=== PATIENT | female | born 1960 | race Caucasian/White ===

== ENCOUNTER 2017-07-09 12:04 | Emergency (ER) | payer MEDICAID ==
[~2017-07-09] VITALS: Ht 152.4 cm; Wt 57.5 kg
[~2017-07-09 12:04] MED LIST: DIPH-423 PO; NO HOME MEDS; PRED10TA; PRED20TA PO
[2017-07-09 12:08] VITALS: BP 149/73
[2017-07-09] MEDS ORDERED: PRED20TA PO (12:17)
[2017-07-09] MEDS ORDERED: dexamethasone sod phosphate 10mg/ml inj IM STA (12:17)
[2017-07-09] MEDS ORDERED: MUPI22OI30 TOP (12:17)
== END 2017-07-09 12:30 | disposition home or self-care (01) ==
LOC: ER 12:04
DX: L25.5 Unspecified contact dermatitis due to plants, except food (principal); I10 Essential (primary) hypertension; F12.10 Cannabis abuse, uncomplicated; F17.210 Nicotine dependence, cigarettes, uncomplicated; Z59.0 Homelessness; Z86.14 Personal history of Methicillin resistant Staphylococcus aureus infection
CPT/HCPCS: 96372; 99284; J1100

== ENCOUNTER 2017-08-03 10:39 | Emergency (ER) | payer MEDICAID ==
[~2017-08-03] VITALS: Ht 152.4 cm; Wt 57.0 kg
[2017-08-03 11:11] VITALS: BP 152/99
[2017-08-03] MEDS ORDERED: dexamethasone sod phosphate 10mg/ml inj IM STA (11:26)
[2017-08-03] MEDS ORDERED: PRED10TA PO (11:26)
== END 2017-08-03 12:02 | disposition home or self-care (01) ==
LOC: ER 10:40
DX: L23.9 Allergic contact dermatitis, unspecified cause (principal); I10 Essential (primary) hypertension; F17.200 Nicotine dependence, unspecified, uncomplicated; F12.10 Cannabis abuse, uncomplicated; Z86.14 Personal history of Methicillin resistant Staphylococcus aureus infection; Z56.0 Unemployment, unspecified; Z79.899 Other long term (current) drug therapy
CPT/HCPCS: 96372; 99283; J1100

== ENCOUNTER 2017-10-17 06:18 | Emergency (ER) | payer MEDICAID ==
[~2017-10-17] VITALS: Ht 152.4 cm; Wt 60.0 kg
[~2017-10-17 06:18] MED LIST changes: +HYDR28CR14 TOP; +METH4TAB81 PO; +PRED10TA PO
[2017-10-17] MEDS ORDERED: PRED20TA PO (06:43)
[2017-10-17] MEDS ORDERED: triamcinolone acetonide 40mg/ml inj IM ONE (06:45)
== END 2017-10-17 06:53 | disposition home or self-care (01) ==
LOC: ER 06:18
DX: L23.7 Allergic contact dermatitis due to plants, except food (principal); L01.09 Other impetigo; I10 Essential (primary) hypertension; F12.90 Cannabis use, unspecified, uncomplicated; Z59.0 Homelessness; Z98.890 Other specified postprocedural states; Z90.89 Acquired absence of other organs; Z86.73 Personal history of transient ischemic attack (TIA), and cerebral infarction without residual deficits; Z79.899 Other long term (current) drug therapy
CPT/HCPCS: 96372; 99283; J3301

== ENCOUNTER 2017-11-28 16:27 | Emergency (ER) | payer MEDICAID ==
[2017-11-28 16:31] VITALS: BP 133/88
[2017-11-28] MEDS ORDERED: HYDR28CR14 TOP (16:32)
== END 2017-11-28 16:44 | disposition home or self-care (01) ==
LOC: ER 16:27
DX: L23.7 Allergic contact dermatitis due to plants, except food (principal); I10 Essential (primary) hypertension; F12.90 Cannabis use, unspecified, uncomplicated; Z86.14 Personal history of Methicillin resistant Staphylococcus aureus infection; Z86.73 Personal history of transient ischemic attack (TIA), and cerebral infarction without residual deficits; Z90.89 Acquired absence of other organs; Z59.0 Homelessness; Z79.899 Other long term (current) drug therapy
CPT/HCPCS: 99282

== ENCOUNTER 2018-07-15 20:36 | Emergency (ER) | payer MEDICAID ==
[~2018-07-15] VITALS: Ht 152.4 cm; Wt 63.2 kg
[~2018-07-15 20:36] MED LIST changes: +CEPH500C5 PO
[2018-07-15 20:39] VITALS: BP 167/96
--- NOTE | 2018-07-15 20:57 | NUR ---
PATIENT WANTS WOUND CHECKED OUT BEFORE SHE GOES HOME BECAUSE SHE "HAS BEEN PARTYING AND DOES NOT WANT MY DAUGHTER TO FREAK OUT"
[2018-07-15] MEDS ORDERED: SULF1TAB49 PO (21:17)
== END 2018-07-15 21:26 | disposition home or self-care (01) ==
LOC: ER 20:36
DX: S60.562A Insect bite (nonvenomous) of left hand, initial encounter (principal); L03.114 Cellulitis of left upper limb; I10 Essential (primary) hypertension; F12.10 Cannabis abuse, uncomplicated; F15.10 Other stimulant abuse, uncomplicated; Z59.0 Homelessness; Z86.14 Personal history of Methicillin resistant Staphylococcus aureus infection; Z87.440 Personal history of urinary (tract) infections; Z90.89 Acquired absence of other organs; W57.XXXA Bitten or stung by nonvenomous insect and other nonvenomous arthropods, initial encounter; Y93.89 Activity, other specified; Y92.89 Other specified places as the place of occurrence of the external cause; Y99.8 Other external cause status
CPT/HCPCS: 99283

== ENCOUNTER 2019-03-18 09:25 | Emergency (ER) | payer MEDICAID ==
[~2019-03-18] VITALS: Ht 152.4 cm; Wt 59.0 kg
[~2019-03-18 09:25] MED LIST changes: -CEPH500C5 PO
[2019-03-18 09:27] VITALS: BP 156/91
[2019-03-18] MEDS ORDERED: famotidine 20mg tablet PO ONE (09:40)
[2019-03-18] MEDS ORDERED: diphenhydrAMINE 25mg capsule PO ONE (09:40)
[2019-03-18] MEDS ORDERED: TRIA15CR62 TP (09:46)
== END 2019-03-18 10:08 | disposition home or self-care (01) ==
LOC: ER 09:25
DX: L23.7 Allergic contact dermatitis due to plants, except food (principal); I10 Essential (primary) hypertension; F12.90 Cannabis use, unspecified, uncomplicated; F15.90 Other stimulant use, unspecified, uncomplicated; F17.200 Nicotine dependence, unspecified, uncomplicated; Z59.0 Homelessness; Z98.890 Other specified postprocedural states; Z90.89 Acquired absence of other organs; Z86.14 Personal history of Methicillin resistant Staphylococcus aureus infection; Z79.899 Other long term (current) drug therapy
CPT/HCPCS: 99283; Q0163

== ENCOUNTER 2022-09-30 20:14 | Emergency (ER) | payer MEDICAID ==
[~2022-09-30] VITALS: Ht 152.4 cm; Wt 68.2 kg
[2022-09-30 20:44] VITALS: BP 141/80
[2022-09-30 21:51] LABS: BASOPHILS # (AUTO) 0.1 X10'3 (0-0.2); BASOPHILS % (AUTO) 0.7 % (0-1); EOSINOPHILS # (AUTO) 0.2 X10'3 (0-0.9); EOSINOPHILS % (AUTO) 1.9 % (0-6); HEMATOCRIT 38.3 % (35.0-45.0); HEMOGLOBIN 12.7 g/dl (12.0-16.0); LYMPHOCYTES # (AUTO) 1.8 X10'3 (1.1-4.8); LYMPHOCYTES % (AUTO) 15.1 % (21-51); MEAN CORPUSCULAR HEMOGLOBIN 29.7 PG (27.0-31.0); MEAN CORPUSCULAR HGB CONC 33.2 g/dL (33.0-36.5); MEAN CORPUSCULAR VOLUME 89.5 FL (78-98); MEAN PLATELET VOLUME 8.9 FL (7.4-10.4); MONOCYTES # (AUTO) 0.9 X10'3 (0-0.9); MONOCYTES % (AUTO) 7.6 % (2-12); NEUTROPHILS # (AUTO) 8.7 X10'3 (1.8-7.7); NEUTROPHILS % (AUTO) 74.7 % (42-75); PLATELET COUNT 257 X10'3 (140-440); RED BLOOD COUNT 4.29 X10'6 (4.20-5.60); RED CELL DISTRIBUTION WIDTH 13.8 % (11.5-14.5); WHITE BLOOD COUNT 11.6 X10'3 (4.5-11.0)
[2022-09-30 22:02] LABS: ALANINE AMINOTRANSFERASE 40 U/L (12-78); ALBUMIN 3.5 G/DL (3.4-5.0); ALBUMIN/GLOBULIN RATIO 0.9 (1.1-1.5); ALKALINE PHOSPHATASE 116 IU/L (46-116); ANION GAP 9 (8-16); ASPARTATE AMINO TRANSFERASE 26 U/L (10-37); BILIRUBIN,TOTAL 0.3 MG/DL (0.1-1.0); BLOOD UREA NITROGEN 26 MG/DL (7-18); BUN/CREATININE RATIO 23.6 (10.0-20.0); CHLORIDE 103 MMOL/L (99-107); GLUCOSE 126 MG/DL (70-104); LIPASE 154 U/L (73-393); POTASSIUM 3.7 MMOL/L (3.5-5.1); SODIUM 139 MMOL/L (135-145); TOTAL CARBON DIOXIDE 27.2 MMOL/L (24-32); TOTAL PROTEIN 7.5 G/DL (6.4-8.2); eGFR 51 ML/MIN
[2022-10-01] MEDS ORDERED: acetaminophen 325mg tablet PO ONE (00:05)
[2022-10-01] MEDS ORDERED: famotidine 20mg tablet PO ONE (00:05)
[2022-10-01] MEDS ORDERED: metoclopramide 10mg tablet PO ONE (00:05)
[2022-10-01] MEDS ORDERED: PANT20TA18 PO (00:14)
[2022-10-01] MEDS ORDERED: METO-292 PO (00:14)
== END 2022-10-01 00:35 | disposition home or self-care (01) ==
LOC: ER 20:15
DX: R10.12 Left upper quadrant pain (principal); I10 Essential (primary) hypertension; F12.90 Cannabis use, unspecified, uncomplicated; F15.90 Other stimulant use, unspecified, uncomplicated; Z72.89 Other problems related to lifestyle; Z90.89 Acquired absence of other organs; Z98.890 Other specified postprocedural states; Z59.00 Homelessness unspecified; Z79.899 Other long term (current) drug therapy
CPT/HCPCS: 36415; 74176; 80053; 83690; 85025; 99284

== ENCOUNTER 2024-12-10 16:02 | Inpatient (IN) | payer MEDICAID ==
[~2024-12-10] VITALS: Ht 152.4 cm; Wt 65.9 kg
[~2024-12-10 16:02] MED LIST changes: +METO-292 PO; +PANT20TA18 PO
--- NOTE | 2024-12-10 16:30 | Physician Documentation ---
History of Present Illness ~ Chief Complaint: Hypertension Stated Complaint: DIZZY Time Seen by MD: 16:30 Primary Medical Doctor: ann-marie henderson [facility] This is a 64-year-old female with a history of polysubstance abuse including methamphetamine, tobacco, marijuana and alcohol. She reports that she has currently been cutting down her alcohol use and is now able to go a day or two typically without having withdrawal symptoms. She does also note dizziness, blurred vision, intermittent headaches. Her main issue today is dizziness, and feeling more fatigued than usual. She was found to be markedly hypertensive in triage, and does note that she has been out of her lisinopril 40 mg daily for the last six months. No CP. No dyspnea. Medication Reconciliation Allergies: Coded Allergies: No Known Allergies (Unverified , 12/10/24) Scheduled Hydrocortisone (hydrocortisone 1% cream), 1 APPLIC TOP Q12H Hydrocortisone (hydrocortisone 1% cream), 1 APPLIC TOP Q12H Methylprednisolone (Medrol Dosepak), 4 MG PO DAILY Metoclopramide HCl (Reglan), 1 TAB PO Q8H Pantoprazole Sodium (Protonix), 1 TAB PO DAILY Prednisone* (Prednisone*), 40 MG PO DAILY Prednisone (Prednisone), 0 .SEE ORDER DAILY Prednisone (Prednisone), 0 PO DAILY Scheduled PRN Diphenhydramine Hcl* (Benadryl*), 25-50 MG PO Q6H PRN Miscellaneous Medications Home Med List (No Home Medications), (Reported) Past Medical History Past Medical History: Hypertension, UTI, MRSA Abscess Past Surgical History: abdominal surgery, , tonsillectomy Alcohol Use: Occasionally Drug Use: marijuana, methamphetamine Lives with: S/O Lives In: Homeless Occupation: employed Review of Systems ROS As stated above in the HPI, otherwise all systems are reviewed and negative. Physical Exam Vital Signs: Temperature: 96.8, Source: Temporal, Heart Rate: 84, Respiratory Rate: 18, BP: 201/121, Pulse Oximetry: 95, Weight: 65.950 Oxygen Flow Rate: 0 Physical Exam General: Alert, no apparent distress. Neck: Full range of motion. Respiratory: Lungs clear, no respiratory distress. Chest: No accessory muscle use. Cardiovascular: Regular rate and rhythm, no murmurs. Gastrointestinal: Soft, nontender, nondistended. Bowels sounds present. Extremities: Normal range of motion, no deformity. Neurologic: Oriented x4. Moves all extremities equally. Psychiatric: Normal mood and affect. Skin: Normal color, warm and dry. No edema, no ecchymosis. Progress Progress Note 1740: Hospitalist agrees to accept patient for admission. Results/Orders Results/Orders Orders - AKILAH SEQUEIRA GLASS BEVELLER Normal Saline 1000ml (0.9% Sodium Chlori (12/10/24 17:25) Page Hospitalist (12/10/24 17:24) Accucheck (12/10/24 17:24) Accucheck (12/10/24 18:24) Accucheck (12/10/24 19:24) Urinalysis (12/10/24 17:25) Completed Orders - AKILAH SEQUEIRA GLASS BEVELLER Metoprolol Tartrate Inj (Lopressor Iv) (12/10/24 16:35) Lisinopril Tablet (Zestril Tablet) (12/10/24 16:40) Lorazepam Tablet (Ativan Tablet) (12/10/24 16:40) Insulin Regular, Human (Humulin R 10 Uni (12/10/24 17:35) Medications Received in ER Medications (Trade) Dose Ordered Sig/Lenin Route PRN Reason Start Time Stop Time Status Last Admin Dose Admin (Lopressor IV) 5 mg ONCE ONCE IV 12/10/24 16:35 12/10/24 16:36 DC 12/10/24 16:49 5 MG (Zestril tablet) 20 mg ONCE ONCE PO 12/10/24 16:40 12/10/24 16:41 DC 12/10/24 16:49 20 MG (Ativan tablet) 1 mg ONCE ONCE PO 12/10/24 16:40 12/10/24 16:41 DC 12/10/24 16:49 1 MG Sodium Chloride 1,000 ml @ 1,000 mls/hr ONCE ONCE IV 12/10/24 17:25 12/10/24 18:24 12/10/24 17:32 1,000 MLS/HR (HumuLIN R 10 units per 0.1 ML syringe) 10 units ONCE ONCE IV 12/10/24 17:35 12/10/24 17:36 DC 12/10/24 17:36 10 UNITS Vital Signs 12/10/24 12/10/24 12/10/24 16:04 17:01 17:19 Temp 96.8 Pulse 84 84 Resp 18 B/P (MAP) 201/121 169/75 (106) Pulse Ox 95 O2 Flow Rate 0 Laboratory Tests Test 12/10/24 16:20 12/10/24 17:20 White Blood Count 8.7 Red Blood Count 4.95 Hemoglobin 14.9 Hematocrit 43.9 Mean Corpuscular Volume 88.7 Mean Corpuscular Hemoglobin 30.2 Mean Corpuscular Hemoglobin Concent 34.0 Red Cell Distribution Width 12.8 Platelet Count 242 Mean Platelet Volume 10.6 H Neutrophils (%) (Auto) 62.8 Lymphocytes (%) (Auto) 25.2 Monocytes (%) (Auto) 8.1 Eosinophils (%) (Auto) 3.3 Basophils (%) (Auto) 0.6 Neutrophils # (Auto) 5.5 Lymphocytes # (Auto) 2.2 Monocytes # (Auto) 0.7 Eosinophils # (Auto) 0.3 Basophils # (Auto) 0.0 CBC Comment Sodium Level 131 L Potassium Level 4.3 Chloride Level 96 L Carbon Dioxide Level 26.6 Anion Gap 8 Blood Urea Nitrogen 16 Creatinine 1.03 H Estimated GFR/1.73 m2 54 BUN/Creatinine Ratio 15.5 Glucose Level 612 *H Calcium Level 9.1 Total Bilirubin 0.4 Direct Bilirubin 0.1 Aspartate Amino Transf (AST/SGOT) 29 Alanine Aminotransferase (ALT/SGPT) 57 Alkaline Phosphatase 171 H Troponin I High Sensitivity 7 Pro-B-Type Natriuretic Peptide < 30 Total Protein 8.0 Albumin 3.6 Globulin 4.4 H Albumin/Globulin Ratio 0.8 L Chemistry Comments Urine Comment EKG/XRAY/CT/US/VASC/MRI EKG : Additional Comment 1611 EKG interpreted to show RSR rate of 83. No ectopy. No ST segment elevation. QTC 475 ms. Chest X-Ray : Additional Comments [facility] [address] , [place] - [address] DIAGNOSTIC RADIOLOGY Patient: YADAV,SILVESTRE A Medical Record: [id number] [facility] : 1960, Age: 64 Sex: Female Location: ER Patient Status: REG ER Service Date/Time: 12/10/241608 Ordering Physician: FAITH MEYER MD Exam: CHEST,SINGLE VIEW CHEST RADIOGRAPH Indication: CP Technique: Single frontal view of the chest was obtained COMPARISON: None FINDINGS: Lines and Tubes: None Lungs: Clear. Atelectasis versus scarring within the right lower lung zone. Pleura: No effusion. No pneumothorax. Cardiomediastinal contours: Unremarkable Bones: Unremarkable IMPRESSION: 1. No acute disease. Electronically Signed by:LEON FOSTER MD Date & Time: 12/10/241626 Dictated by: LEON FOSTER MD Dictation date and time: 12/10/241626 Primary Care Provider: NO PRIMARY CARE PROVIDER cc: FAITH MEYER MD ~ Medical Decision Making Additional Information This is a 64-year-old female with a history of polysubstance abuse who presents today due to concerns for dizziness, fatigue, and overall feeling unwell. Blood pressure was found to be markedly elevated with a systolic in the low 200s in triage. Lab work remarkable for blood glucose level of 612. She does not have a diagnosis of diabetes. On questioning, she does admit that she has been craving sugar lately, and has been excessively thirsty. She is treated in the emergency room with 10 units of regular insulin, 1 L of normal saline as a bolus. She was also given lisinopril 20 mg po once, lopressor 5 mg IVP x 1, and lorazepam 1 mg po x 1. With her new diagnosis of diabetes and markedly elevated blood glucose, she would benefit from hospital admission for initiation of regimen to manage her diabetes and also extensive education pertinent to this new diagnosis. Hospitalist paged, agrees to admit. Departure Time of Disposition: 17:41 Disposition: 09 ADMITTED INPATIENT Admitted to Inpatient Unit: yes, to hospitalist Impression: Primary Impression: Accelerated hypertension Additional Impression: Hyperglycemia Referrals: NO PRIMARY CARE PROVIDER (PCP) Signature Scribe Signature: x Attestation: The note accurately reflects work and decisions made by me.Akilah Blackburn NP 12/10/24 16:33 AKILAH SEQUEIRA NP Dec 10, 2024 16:30
[2024-12-10 16:41] LABS: MEAN PLATELET VOLUME 10.6 FL (7.4-10.4); RED CELL DISTRIBUTION WIDTH 12.8 % (11.5-14.5)
[2024-12-10] MEDS: metoprolol tartrate 1mg/ml inj IV ONE (16:49)
[2024-12-10 16:51] LABS: CREATININE 1.03 MG/DL (0.40-0.90); PRO BRAIN NATRIURETIC PEPTIDE < 30 PG/ML (0-125); TOTAL CARBON DIOXIDE 26.6 MMOL/L (24-32); eCRCL 41 ML/MIN; eGFR 54 ML/MIN
[2024-12-10] MEDS ORDERED: insulin regular, human 10 units/0.1 ml syringe SQ ONE (17:25)
[2024-12-10] MEDS: normal saline 1000ml 1,000 ML IV ONE ×2 (17:32→19:59)
[2024-12-10] MEDS: insulin regular, human 10 units/0.1 ml syringe IV ONE ×2 (17:36→20:53)
[2024-12-10 17:39] LABS: LEUKOCYTE ESTERASE ,URINE NEGATIVE (Neg); NITRITES, URINE POSITIVE (Neg); OCCULT BLOOD,URINE TRACE-INTACT (Neg)
[2024-12-10] MEDS ORDERED: magnesium hydroxide 30ml (MOM) UD suspension PO PRN (17:40)
[2024-12-10] MEDS ORDERED: mag hydrox/Alum hydrox/simeth 30ml oral suspension PO PRN (17:40)
[2024-12-10] MEDS ORDERED: potassium Cl 40MEQ/1/2NS 520ml 520 ML IV PRN (17:40)
[2024-12-10] MEDS ORDERED: magnesium sulf-water 4G/100mL 100 ML IV PRN (17:40)
[2024-12-10] MEDS ORDERED: magnesium sulf-water 2g/50mL 50 ML IV PRN (17:40)
[2024-12-10] MEDS ORDERED: magnesium Cl slow-release 64mg tablet PO PRN (17:40)
[2024-12-10] MEDS ORDERED: potassium Cl 20 mEq SR tablet PO PRN (17:40)
[2024-12-10] MEDS ORDERED: ondansetron/PF 4mg/2ml inj IV PRN (17:40)
[2024-12-10 17:44] LABS: UA COLLECTION TYPE CLN CATCH MIDSTREAM
[2024-12-10 17:45] LABS: MUCUS STRANDS FEW /LPF (Neg); SQUAMOUS EPITHELIAL CELL,UR FEW /LPF (FEW)
--- NOTE | 2024-12-10 18:17 | RADIOLOGY REPORT ---
Procedure: CT CT HEAD [facility] Study Date and Requested Time: 12/10/2024 05:52 PM History: Hypertensive urgency Comparison: None Dose: CTDI: 51.64 mGy DLP: 845.54 mGycm Technique: Multiplanar images obtained through the brain without intravenous contrast. Findings: Motion artifact limits evaluation of the superior part of the brain. Otherwise, Normal brain volume a nd formation. Mild chronic small vessel ischemic changes. No hemorrhages, masses, mass effect, midline shift, herniation or cytotoxic edema following a large v ascular territory. No intra-axial or extra-axial fluid collections. No evidence of hydrocephalus. The basal cisterns are patent. The pituitary gland, sella and parasellar regions are unremarkable. The cerebellar tonsils are in nor mal position. The cerebellum is unremarkable. The orbits and globes are unremarkable. Mucoperiosteal thickening of the partially visualized left ma xillary sinus. Otherwise, the paranasal sinuses and mastoids are clear. There are no worrisome calvar ial lesions. Impression: Motion artifact limits evaluation of the superior part of the brain. Otherwise, No evidence of acute intracranial abnormality.
[2024-12-10] MEDS: normal saline 1000ml 1,000 ML IV SCH (19:24)
[2024-12-10] MEDS ORDERED: aminophylline 250mg/10ml inj. IV PRN (19:35)
[2024-12-10] MEDS ORDERED: haloperidol lactate 5mg/ml inj IM PRN (19:35)
[2024-12-10] MEDS ORDERED: diazepam inj 5 MG/ML inj. IV PRN (19:35)
[2024-12-10] MEDS ORDERED: metoprolol tartrate 1mg/ml inj IV PRN (19:35)
--- NOTE | 2024-12-10 19:41 | HISTORY AND PHYSICAL-Residence ---
History & Physical Providers to Resident Creating Document: DULCE NGUYEN, RES ~ History of Present Illness Primary Medical Doctor: ann-marie henderson Reason for Admit\Complaint: Dizziness History of Present Illness This is a 67-year-old female with a history of hypertension, currently without a primary care provider, who presents with three weeks of intermittent lightheadedness, dizziness, and blurry vision. She reports that the symptoms have been gradually worsening but initially ignored them. Two weeks prior to presentation, she experienced a brief episode of left-sided upper and lower extremity weakness lasting approximately two minutes, which resulted in a fall. She denies loss of consciousness, seizure-like activity, or persistent neurologic deficits. She reports drinking one can of alcohol every 23 days and had a history of binge drinking about a month ago. She has a significant smoking history. She was previously prescribed lisinopril for hypertension but has not taken it for the past six months after obtaining it from [facility]. She has not been on any medications since then. On presentation, her blood pressure was markedly elevated at 202/120 mmHg. Laboratory evaluation revealed a glucose of 612 mg/dL and an A1c of 10.3%, suggesting uncontrolled diabetes mellitus. CT head was negative for acute pathology. Basic metabolic panel showed creatinine of 1.03 with a normal anion gap. Urinalysis was notable for glucosuria >1000 mg/dL, positive nitrites, 1020 WBCs, and negative ketones. CBC was within normal limits. She denies fever, dysuria, or flank pain. No primary care provider Does not see any other providers Ambulates independently [place] Allergies: Coded Allergies: No Known Allergies (Unverified , 12/10/24) Home Medications Home Medications Active Protonix (Pantoprazole Sodium) 20 Mg Tablet.dr 1 Tab PO DAILY 30 Days Reglan (Metoclopramide HCl) 10 Mg Tablet 1 Tab PO Q8H 30 Days before food and bedtime hydrocortisone 1% cream (Hydrocortisone) 1 Applic Cream..g. 1 Applic TOP Q12H 10 Days Medrol Dosepak (Methylprednisolone) 4 Mg Tab.ds.pk 4 Mg PO DAILY Disregard package instructions and follow my instructions. 6 by mouth every morning, 5 by mouth every morning, 4 by mouth every morning, 3 by mouth every morning, 2 by mouth every morning, one by mouth every morning. hydrocortisone 1% cream (Hydrocortisone) 1 Applic Cream..g. 1 Applic TOP Q12H 7 Days Prednisone (Prednisone) 10 Mg Tablet 0 PO DAILY Take 6 tabs/day x2 days then 5 daily x2 days 4 daily x2 days 3 daily x2 days 2 daily x2 days 1 daily x2 days then stop. Prednisone (Prednisone) 10 Mg Tablet 0 .SEE ORDER DAILY Take 4 tabs daily x4 days, then 3 daily x4 days 2 daily x4 days 1 daily x4 days 1/2 daily x4 days then STOP Benadryl* (Diphenhydramine HCl) 25 Mg Capsule 25-50 Mg PO Q6H PRN Prednisone* (Prednisone) 20 Mg Tablet 40 Mg PO DAILY Reported No Home Medications (Home Med List) Each Past Medical History Past Medical History TIA COPD Past Surgical History Surgical History Comment Hiatal hernia surgery LSCS Past Social History Social History Comment Smoking: half a pack of cigarettes for about 40 years, 3-4 cigarettes since the past 2 days Alcohol: 1 can of beer every 3-4 days, for a day 1 month ago Illicit use of drugs: Occasional marijuana use, but denied Smoking: Cigarettes Alcohol Use: Occasionally Drug Use: Marijuana, Methamphetamine Lives with: S/O Lives In: Homeless Occupation: employed ROS ROS Reviewed in full. All negative except for pertinent positive HPI. Exam Vitals: Vital Signs Date Time Temp Pulse Resp B/P (MAP) Pulse Ox O2 Delivery O2 Flow Rate FiO2 12/10/24 17:19 84 169/75 (106) 12/10/24 16:04 96.8 18 95 0 General: Awake , alert, and oriented x4, resting comfortably in the bed, in no acute distress HEENT: Atraumatic, normocephalic, EOMI, anicteric sclera ; pink conjunctiva Neck: Trachea midline. Supple, full range of motion, no JVD Cardiac: Regular rhythm, regular rate with no murmurs all over the precordium. Respiratory: Equal breath sounds bilaterally, no tachypnea, no wheezing ,rub or rales, Chest wall is symmetric and without deformity. Gastrointestinal: Abdomen symmetric, non-distended, soft, non-tender, normal bowel sounds x4 quadrant, normoactive, no hepatosplenomegaly Musculoskeletal: Round scabbed wounds on bilateral lower extremities Neurological: Speech is clear, alert, and oriented x 4. No motor or sensory deficit, deep tendon reflexes normal, cerebellar intact. Cranial nerves II-XII intact. Skin: Warm and dry Diagnostic Data Last Recorded Lab Results: 12/10/24 1620 12/10/24 1620 Advance Care Planning Advanced Care plannin - 30 Minutes Additional Plan 1. Hypertensive Emergency (BP 202/120 mmHg on arrival, medication non- adherence): Syncope workup - dizziness Patient experienced an episode of dizziness Syncope Workup Initiated Telemetry monitoring Orthostatic vitals ordered Echocardiogram ordered Troponins negative Hyponatremia and hypochloremia: NS at 100 cc/hour, corrected hyponatremia, sodium 139 CT Head negative The patient has a known history of hypertension but has been off lisinopril for 6 months, likely contributing to uncontrolled BP. No signs of end-organ damage on CT head or labs; however, her transient focal neurological symptoms raise concern for TIA vs hypertensive encephalopathy. Plan: Patient received Lopressor and lisinopril in the ED Gradual BP reduction using oral antihypertensive agents: amlodipine 10 mg daily (current blood pressure is 165/110) Resume lisinopril with close monitoring if renal function remains stable tomorrow. Monitor for symptoms of stroke or recurrent neurologic deficits. Serial BP monitoring . Reinforce medication adherence. 2. New-onset or poorly controlled Type 2 Diabetes Mellitus (Glucose 612 mg/dL, A1c 10.3%, ketone-negative, normal anion gap): HHS versus uncontrolled type 2 diabetes mellitus Hyperglycemia without evidence of diabetic ketoacidosis (DKA) or hyperosmolar hyperglycemic state (HHS) for now. Patinet is not latered or dehydrated Likely undiagnosed or unmonitored diabetes contributing to current symptoms. However patient has normal mentation, urine ketones are negative, normal anion gap with no acidosis Plan: Follow up with serum osmolarity Patient received 10 units of regular insulin Started the patient on 20 units of Lantus and 10 units of glargine, high dose sliding scale protocol IV hydration, NS at 100 cc/hour, patient received 1 L NS bolus, ordered 2 L boluses of NS Diabetic education including glucose monitoring, diet, and medication compliance. Arrange outpatient follow-up for diabetes management. Initiate metformin and linagliptin if renal function permits and glucose stabilizes on discharge 3. Possible Transient Ischemic Attack (TIA) transient left-sided weakness episode x 2 minutes Brief neurological event in the setting of severe hypertension. Although symptoms resolved, this raises concern for a TIA or possible small vessel ischemic event. Plan: CT head negative MRI brain ordered, consult neurology based on results Initiated aspirin 81 mg daily Initiated atorvastatin 80 mg daily, follow up with lipid panel vascular ultrasound carotid ordered Continue telemetry 4. Urinary Tract Infection (positive nitrite, WBCs 1020, glucosuria): UA concerning for UTI, though patient denies typical urinary symptoms. Plan: Pending urine cultures Initiated empiric antibiotics ceftriaxone 1 g IV daily 5 Shoulder blade pain radiating to the left arm Ordered Lexiscan, as patient never had a cardiac workup outpatient Troponins were negative 5. Social/Preventive Health No PCP, alcohol use, prior smoking history, medication non-adherence: Patient is currently without regular medical follow-up or care coordination. Alcohol use is moderate but includes recent binge. Medication non-compliance is likely contributing to uncontrolled chronic conditions. Plan: Mild alcohol withdrawal protocol Substance abuse navigator and home health care social worker consulted Community Health Representative on alcohol reduction/cessation. 6, Mild BERTO, prerenal- vasomotor nephropathy Creatinine 1.03, continue monitoring CMP 7. Distended abdomen, mild epigastric tenderness LFTs normal Consider orderiing Ultrasound abdomen if her abd pain continues to worsen Code Status: Full code DVT Prophylaxis: Heparin SQ Nutrition: Heart healthy diet PT: Ordered Prognosis: Guarded Disposition: Continue telemetry Dulce Nguyen MD Internal Medicine Resident, PGY-2 Date of Service: Dec 10, 2024 Billing Provider: PREETI PALOMINO MD,DULCE, RES Dec 10, 2024 19:41
[2024-12-10] MEDS: K and/or MAG REPLACEMENT MC SCH (20:00)
[2024-12-10] MEDS ORDERED: dextrose 50%-water 50ml dispensing syringe IV PRN ×2 (20:05)
[2024-12-10] MEDS ORDERED: glucagon, human recombinant 1mg kit SUBCUT PRN (20:05)
[2024-12-10] MEDS ORDERED: DEXTROSE 15 GM of carb/4 tabs (each vial/BOTTLE has 4 tablets) PO PRN ×2 (20:05)
[2024-12-10 20:09] LABS: OSMOLALITY 323 MOSM/K (280-300)
[2024-12-10 20:24] LABS: ETHANOL < 10 MG/DL (<10)
[2024-12-10] MEDS: heparin, porcine 5000 units/ml vial SQ SCH (20:51)
[2024-12-10] MEDS: docusate sod 100mg capsule PO SCH (20:52)
[2024-12-10 21:03] LABS: URINE AMPHETAMINE SCREEN NEGATIVE (Neg); URINE BARBITUATE SCREEN NEGATIVE (Neg); URINE BENZODIAZEPINES SCREEN NEGATIVE (Neg); URINE CANNABINOID SCREEN NEGATIVE (Neg); URINE COCAINE SCREEN NEGATIVE (Neg); URINE METHADONE SCREEN NEGATIVE (Neg); URINE OPIATE SCREEN NEGATIVE (Neg); URINE PHENCYCLIDINE SCREEN NEGATIVE (Neg)
[2024-12-10] MEDS: thiamine 100mg/ml 2ml inj. IV SCH (21:35)
[2024-12-10] MEDS: INSULIN LISPRO 100 UNIT/ML INSULN.PEN MULTI-DOSE SQ SCH (21:37)
[2024-12-10 22:00] VITALS: BP_SYST 103; BP_SYST 126; BP_SYST 127; BP_DIAS 54; BP_DIAS 69; PULSE 64; PULSE 68; PULSE 69
[2024-12-10 22:01] VITALS: BP 133/67; PULSE 65; RESP 15; TEMP 96.9; O2SAT 97
[2024-12-10] MEDS: insulin glargine (Lantus) pen - multi-dose SQ SCH (23:07)
[2024-12-10] MEDS: nicotine 14mg patch - 24hr TD SCH (23:25)
[2024-12-11] VITALS (14 sets, daily range): BP systolic 111–155; BP diastolic 60–83; PULSE 59–84; RESP 11–20; TEMP 97.2–98.1; O2SAT 96–98
--- NOTE | 2024-12-11 06:34 | ELECTROCARDIOGRAPH REPORT ---
[facility] Test Date: 2024-12-10 Test Time: 16:11:15 Pat Name: SILVESTRE YADAV Department: EMERGENCY ROOM Room: [place] [address] A Gender: F Ecological Technical Officer: STEFANY : 1960 Requested By: FAITH MEYER Order Number: [id number] Reading MD: Dr. Masoud Wheeler Measurements Intervals [place] Rate: 83 P: 43 NC: 154 QRS: -6 QRSD: 88 T: 117 QT: 404 QTc: 475 Interpretive Statements Sinus rhythm LVH with secondary repolarization abnormality Inferior infarct, old Probable anterior infarct, age indeterminate Electronically Signed On 12-11-2024 20:10:[address] Masoud Wheeler Please click the below link to view image of tracing.
[2024-12-11 06:37] LABS: MEAN PLATELET VOLUME 10.2 FL (7.4-10.4); RED CELL DISTRIBUTION WIDTH 12.8 % (11.5-14.5)
[2024-12-11 07:06] LABS: CHOL/HDL RATIO 5.3 (0.00-4.99); CREATININE 0.66 MG/DL (0.40-0.90); LDL CHOLESTEROL 55 MG/DL (50-100); TOTAL CARBON DIOXIDE 22.5 MMOL/L (24-32); eCRCL 63 ML/MIN; eGFR > 90 ML/MIN
[2024-12-11] MEDS: multivitamins, therapeutics tablet PO SCH (07:37)
[2024-12-11] MEDS: CefTRIAXone/D5W-Rocephin 1gm 50 ML IV SCH (07:38)
--- NOTE | 2024-12-11 08:40 | VASCULAR REPORT ---
Carotid Duplex Clinical History: Left-sided weakness, dizziness Comparison: None Technique: Duplex Doppler evaluation of the extracranial carotid and vertebral arteries including color Doppler and spectral/pulsed waveform analysis was performed. Findings: RIGHT SIDE: The peak systolic velocities are 88 cm/s in the CCA, 91 cm/s in the ICA. The ICA/CCA ratio is 1.21. The external carotid artery is patent with peak systolic velocity of 76 cm/s proximally. The subclavian artery is patent with peak systolic velocity of 135 cm/s. There is appropriate antegrade flow in the right vertebral artery. LEFT SIDE: The peak systolic velocities are 126 cm/s in the CCA, 82 cm/s in the ICA. The ICA/CCA ratio is 0.86. The external carotid artery is patent with peak systolic velocity of 154 cm/s proximally. The subclavian artery is patent with peak systolic velocity of 134 cm/s. There is appropriate antegrade flow in the left vertebral artery. IMPRESSION: Less than 50% stenosis of bilateral carotid artery systems based on peak systolic velocity. And pres ence of heterogeneous plaque. Antegrade flow in bilateral vertebral arteries. Multiphasic waveforms in bilateral subclavian arteri es. The right subclavian artery displaced turbulent flow suggesting possible proximal obstruction. Reference: Radiology 2003; 229:340-346 Normal ICA PSV is <125 cm/sec and no plaque or intimal thickening is visible sonographically addition al criteria include ICA/CCA PSV ratio <2.0 and ICA EDV <40 cm/sec <50% ICA stenosis ICA PSV is <125 cm/sec and plaque or intimal thickening is visible sonographically additional criteria include ICA/CCA PSV ratio <2.0 and ICA EDV <40 cm/sec 50-69% ICA stenosis ICA PSV is 125-230 cm/sec and plaque is visible sonographically additional criter ia include ICA/CCA PSV ratio of 2.0-4.0 and ICA EDV of 40-100 cm/sec 70% ICA stenosis but less than near occlusion ICA PSV is >230 cm/sec and visible plaque and luminal narrowing are seen at moctezuma-scale and color Doppler ultrasound (the higher the Doppler parameters lie above the threshold of 230 cm/sec, the greater the likelihood of severe disease) additional criteria include ICA/CCA PSV ratio >4 and ICA EDV >100 cm/sec
[2024-12-11] MEDS: INSULIN LISPRO 100 UNIT/ML INSULN.PEN MULTI-DOSE SQ SCH (09:00)
[2024-12-11] MEDS: regadenoson 0.4mg/5ml syringe IV PRN (09:30)
[2024-12-11] MEDS: potassium Cl 20 mEq SR tablet PO PRN (10:45)
[2024-12-11] MEDS: folic acid 1mg/0.2ml inj IV SCH (10:45)
--- NOTE | 2024-12-11 10:54 | RADIOLOGY REPORT ---
Procedure: NM NM STACEY SCAN Exam Date: 12/11/2024 08:15 AM Reason for study/Clinical History: Cardiac workup Comparison Study: None Myocardial Perfusion Study with SPECT Technique: The patient received an intravenous injection of 8.2 mCi of technetium-99m sestamibi whi le at rest. After a short delay, SPECT tomographic images of the heart were obtained. The patient sarah burkett went to the stress lab where they received an intravenous Lexiscan utilizing standard protocol. 33 mCi of technetium-99m sestambi was injected intravenously immediately after the start of the inf usion. Gated SPECT tomographic images of the heart were acquired and processed. Findings: Rotating planar images show no significant attenuation artifact. The left ventricular size is within normal limits. Stress tomographic images demonstrate normal perfusion. Resting tomographic images demonstrate a similar pattern. Gated portion of the study shows normal wall motion and myocardial thickening. The left ventricular ejection fraction is 57%. (normal greater than 50%) Impression: Normal left ventricular size, wall motion, and function, without evidence of infarction or of myocard ium at ischemic risk. The left ventricular ejection fraction is 57%.
--- NOTE | 2024-12-11 12:14 | RADIOLOGY REPORT ---
MRI brain HISTORY: To rule out stroke Comparison: CT brain done 12/10/2024 TECHNIQUE: MR was performed with a surface coil at 1.5 T magnet. Sagittal, axial and coronal T1 and T 2-weighted images were obtained. FINDINGS: No areas of restricted diffusion on diffusion-weighted images. On gradient echo images no areas of abnormal T2 star signal hypointensity to suggest acute or remote hemorrhage On FLAIR imaging sequences no areas of abnormal T2 signal. No hydrocephalus No midline shift No extra-axial fluid collections There is mucosal thickening in the left maxillary sinus with an air-fluid level. Small retention cys t or mucocele in the right maxillary sinus Orbits, sella, and cerebellopontine angles are unremarkable in appearance IMPRESSION: 1. No acute intracranial pathology. 2. Incidental note made of left maxillary sinus disease
--- NOTE | 2024-12-11 14:10 | PROGRESS NOTE- Residence ---
Progress Note - Resident Providers to CC Resident Creating Document: RODOLFO MORINTIK, RES ~ Antibiotic Timeout Antibiotic Ordered?: Yes Subjective Patient is seen and examined at the bedside today. Patient that the dizziness and blurry vision have improved a little. She stated that she has been and noncompliant with all her home medications with the last six months and has not seen any primary care physician to the hospital. She also reported that she has been drinking heavy alcohol but recently started cutting down. She stated that she is currently down to 1-2 beers every day but endorses to have heavy alcohol use until recently. The patient also states that she smokes methamphetamine occasionally and used to inject many years ago. Denied any other concerns or complaints at the moment. Objective Vital Signs Date Time Temp Pulse Resp B/P (MAP) Pulse Ox O2 Delivery O2 Flow Rate FiO2 12/11/24 09:35 76 18 131/70 98 Room Air 0.0 12/11/24 06:00 97.8 12/11/24 02:48 21 Result Diagram: 12/11/24 0601 12/11/24 0601 General: Awake , alert, and oriented x4, resting comfortably in the bed, in no acute distress HEENT: Atraumatic, normocephalic, EOMI, anicteric sclera ; pink conjunctiva Neck: Trachea midline. Supple, full range of motion, no JVD Cardiac: Regular rhythm, regular rate with no murmurs all over the precordium. Respiratory: Equal breath sounds bilaterally, no tachypnea, no wheezing ,rub or rales, Chest wall is symmetric and without deformity. Gastrointestinal: Abdomen symmetric, non-distended, soft, non-tender, normal bowel sounds x4 quadrant, normoactive, no hepatosplenomegaly Neurological: Speech is clear, alert, and oriented x 4. No motor or sensory deficit, deep tendon reflexes normal, cerebellar intact. Cranial nerves II-XII intact. Skin: Warm and dry Counseling Services Smoking & Tobacco Cessation: > 10 Minutes Assessment Assessment 64-year-old female past medical history of hypertension, noncompliance, alcohol use disorder, polysubstance use disorder is admitted in the hospital for evaluation and management of hypertensive emergency, pre syncope, UTI and newly diagnosed diabetes diabetes mellitus. Plan Plan Hypertensive urgency Noncompliance Patient's blood pressure at the time of admission was 201/121. The patient reported noncompliance with her home antihypertensive medication. She also reported that she does not have a primary care physician and has not refilled her medication(lisinopril) in the last six months. The patient was initially treated with a one dose of IV metoprolol and p.o. lisinopril in the ER. The patient is currently on p.o. amlodipine 10 mg once daily. The patient's blood pressure is currently well controlled. Continue to monitor the patient's vitals closely. Reiterated the importance of medication compliance with the patient. Presyncope Recent transient ischemic attack CT scan of the head negative for acute intracranial abnormalities. Carotid ultrasound: Less than 50% stenosis of bilateral carotid arteries. Lexiscan: Negative MRI of the head: Negative for acute intracranial pathology. Suspicion for maxillary mucocele versus small retention cyst in the right maxillary sinus. Continue telemetry monitoring. Requested orthostatic vitals. A1c 10.3 Follow up with TSH. Physical therapy evaluation and treatment to be done. Started the patient on aspirin 81 mg p.o. daily and atorvastatin 80 mg p.o. daily. Awaiting echocardiography. The patient's and significantly uncontrolled hypertension can be the cause of the patient's presyncope. Newly diagnosed diabetes mellitus type 2 Hyperglycemic hyperosmolar state-resolved The patient came in with a blood glucose level of 612. She reports no history of diabetes mellitus in the past. She was initially treated with the IV regular insulin. Was treated with the IV fluids for hydration. She has been transitioned to subcutaneous insulin with a Lantus 20 units and lispro 10 units PC. Patient is also on correctional sliding scale. Close monitoring of the patient's blood glucose level. The patient has been educated regarding her newly diagnosed diabetes mellitus. Diabetes education with nursing and nutrition is also being done. Recommended carb controlled diet. Lifestyle modifications has been educated. Urinary tract infection Urine culture is positive for Gram-negative rods. Restarted the patient on IV ceftriaxone 1 g daily. We will continue to monitor the cultures and adjust the antibiotics accordingly. Alcohol use disorder Polysubstance use disorder Patient is started on alcohol withdrawal protocol. She has also been started on thiamine, folic acid and multivitamin supplementation. Education regarding the importance of abstaining from alcohol and drugs has been given to the patient. The patient endorsed understanding and stated that she is planning to quit. Substance abuse navigator has been consulted. BERTO secondary to vasomotor nephropathy -resolved Continue to monitor renal function test. Hypokalemia Replacement as per protocol. CODE STATUS: Full code DVT prophylaxis: SubQ heparin GI prophylaxis: None Diet: Heart healthy diet Disposition: Continue medical management. Awaiting PT eval and treat. Anticipate discharge in the next 24-48 hours. Rodolfo Morin MD Internal Medicine Resident, PGY-2 Date of Service: Dec 11, 2024 Billing Provider: PREETI PALOMINO MD,RODOLFO SINGLETON, RES Dec 11, 2024 14:10
--- NOTE | 2024-12-11 18:47 | CARDIOLOGY REPORT ---
APPROVED REPORT EXAM: Comprehensive 2D, Doppler, and color-flow Echocardiogram. Patient Location: 3014 [address] Blood Pressure: 131/70 mmHg Heart Rate: 67 bpm Rhythm: SINUS Indications HYPERTENSION METHAMPHETAMINE USE Primer Boxer: none Previous echo: none 2D Dimensions RVDd 3.7 cm LA Diam5.1 cm IVSd 1.2 (0.7-1.1cm) LVDd 4.0 cm PWd 1.2 (0.7-1.1cm) IVSs 1.5 (0.8-1.2cm) LVDs 2.0 (2.5-4.0cm) PWs 1.6 (0.8-1.2cm) LVOT Diameter 2.00 (1.8-2.4cm) LVEF(%) 71.8 (>50%) Ao Asc Diam.3.12 cmIVC 13.10 mm FS (%) 50.0 % SV 57.9 ml CO 4.0 L/min M-Mode Dimensions Left Atrium(MM) 4.16 (2.5-4.0cm) Aortic Root 3.15 (2.2-3.7cm) Aortic Cusp Exc 2.14 (1.5-2.0cm) MV EPSS 0.4 (<0.5cm) Biplane 2D LA Volumes LA ESV Index 34.79 mL/m2 Aortic Valve AoV Peak Rico. 191.6 cm/s AoV VTI 36.6 cm AO Peak GR. 14.7 mmHg AO Mean GR. 8 mmHg LVOT VTI 24.96 cm LVOT Peak Rico. 126.0 cm/s JODI(VTI)/BSA 2.15 cm2/m2 JODI (VTI) 2.15 cm2 Mitral Valve MV E Velocity 74.0 cm/s MV Peak Gr. 4 mmHg MV DECEL TIME 272 ms MV A Velocity 91.8 cm/s MV PHT 56 ms E/A Ratio 0.8 MVA (PHT) 3.93 cm2 MV LIcl051.2 cm/s TDI Medial E' P. V 11.85 cm/s E/Medial E' 6.2 Tricuspid Valve TR P. Velocity 291 cm/s RAP ESTIMATE 10 mmHg TR Peak Gr. 34 mmHg RVSP 44 mmHg Pulmonary Vein S1 Velocity 54.6 cm/s D2 Velocity 33.0 cm/s PVa Rfloqbao52.5 cm/s PVa [id number] msec LEFT VENTRICLE Normal LV size and function. Mild concentric hypertrophy. Overall LVEF is 65-70%. RIGHT VENTRICLE RV is mildly dilated in size with normal function. RVSP is estimated at 44 mmHg. ATRIA Left atrium is moderately dilated. AORTIC VALVE Trileaflet AV appears mildly sclerotic without stenosis. Trace insufficiency. MITRAL VALVE Mild MV annular calcification and leaflet thickening without stenosis. Mild regurgitation. TRICUSPID VALVE TV appears structurally normal with trace regurgitation. PULMONIC VALVE Normal PV without stenosis, physiologic insufficiency. GREAT VESSELS Aortic root is normal in size. Ascending aorta is normal in size. The IVC is normal in size and colla pses greater than 50% with inspiration. PERICARDIUM Normal pericardium. No effusion. Other Information Study Quality: Adequate Conclusion Overall LVEF is 65-70%. Normal LV size and function. Mild concentric hypertrophy. RV is mildly dilated in size with normal function. RVSP is estimated at 44 mmHg. Trileaflet AV appears mildly sclerotic without stenosis. Trace insufficiency. Mild MV annular calcification and leaflet thickening without stenosis. Mild regurgitation. TV appears structurally normal with trace regurgitation. Normal PV without stenosis, physiologic insufficiency. Normal pericardium. No effusion.
[2024-12-12 02:00] VITALS: BP 131/66; PULSE 66; RESP 15; TEMP 97.2; O2SAT 98
[2024-12-12 05:58] LABS: MEAN PLATELET VOLUME 10.5 FL (7.4-10.4); RED CELL DISTRIBUTION WIDTH 12.9 % (11.5-14.5)
[2024-12-12 06:00] VITALS: BP 126/74; PULSE 50; RESP 14; TEMP 98.1; O2SAT 98
[2024-12-12 06:24] LABS: CREATININE 0.68 MG/DL (0.40-0.90); TOTAL CARBON DIOXIDE 22.7 MMOL/L (24-32); eCRCL 62 ML/MIN; eGFR 88 ML/MIN
[2024-12-12 08:00] VITALS: BP_SYST 126; BP_SYST 128; BP_SYST 139; BP_DIAS 57; BP_DIAS 67; BP_DIAS 70; PULSE 62; PULSE 68; RESP 14; O2SAT 98
[2024-12-12] MEDS: OMEGA-3/DHA/EPA/FISH OIL 1 EACH CAPSULE.DR PO SCH (08:33)
[2024-12-12 11:00] VITALS: BP 114/66; PULSE 64; RESP 14; TEMP 98; O2SAT 98
[2024-12-12] MEDS ORDERED: LOSA50TA64 PO (14:54)
[2024-12-12] MEDS ORDERED: OMEG1CAP46 PO (14:54)
[2024-12-12] MEDS ORDERED: LACT1CAP26 PO (14:54)
[2024-12-12] MEDS ORDERED: thiamine tablet PO (14:54)
[2024-12-12] MEDS ORDERED: ATOR20TA66 PO (14:54)
[2024-12-12] MEDS ORDERED: METF-1203 PO (14:54)
[2024-12-12] MEDS ORDERED: EMPA10TA PO (14:54)
[2024-12-12] MEDS ORDERED: FOLI1TAB27 PO (14:54)
[2024-12-12] MEDS ORDERED: CEFD300C3 PO (14:54)
[2024-12-12] MEDS ORDERED: NOR5T PO (14:54)
[2024-12-12 15:00] VITALS: BP 129/62; PULSE 68; RESP 18; TEMP 97.6; O2SAT 98
[2024-12-12] MEDS ORDERED: MULT-25 PO (15:00)
[2024-12-12] MEDS ORDERED: ASPI81TA53 PO (15:00)
--- NOTE | 2024-12-12 17:43 | DISCHARGE SUMMARY-Residence ---
Discharge Summary Providers to CC Resident Creating Document: NISHA HARVEY, RES ~ Discharge Summary Admission Diagnosis: HTN URGENCY Hospital Course DATE OF ADMISSION: 12/10/2024 DATE OF DISCHARGE: 12/12/[address]: Impression: Motion artifact limits evaluation of the superior part of the brain. Otherwise, No evidence of acute intracranial abnormality. ECHO: Conclusion Overall LVEF is 65-70%. Normal LV size and function. Mild concentric hypertrophy. RV is mildly dilated in size with normal function. RVSP is estimated at 44 mmHg. Trileaflet AV appears mildly sclerotic without stenosis. Trace insufficiency. Mild MV annular calcification and leaflet thickening without stenosis. Mild regurgitation. TV appears structurally normal with trace regurgitation. Normal PV without stenosis, physiologic insufficiency. Normal pericardium. No effusion. Carotid ultrasound: IMPRESSION: Less than 50% stenosis of bilateral carotid artery systems based on peak systolic velocity. And presence of heterogeneous plaque. Antegrade flow in bilateral vertebral arteries. Multiphasic waveforms in bilateral subclavian arteries. The right subclavian artery displaced turbulent flow suggesting possible proximal obstruction. Cardiac stress test: Impression: Normal left ventricular size, wall motion, and function, without evidence of infarction or of myocardium at ischemic risk. The left ventricular ejection fraction is 57%. Head MRI: IMPRESSION: 1. No acute intracranial pathology. 2. Incidental note made of left maxillary sinus disease Discharge Diagnosis\Comment: Hypertensive urgency Noncompliance Presyncope Recent transient ischemic attack Newly diagnosed type 2 diabetes mellitus Hyperglycemic hyperosmolar state Urinary tract infection Alcohol use disorder Polysubstance use disorder BERTO secondary to vasomotor nephropathy Hypokalemia Operations\Procedures: None Consultants: None Complications: None Condition on DC: Stable New Medications: Cefdinir* (Cefdinir*) 300 Mg Capsule 1 CAP PO Q12H for 5 Days, #10 CAP Empagliflozin (Jardiance) 10 Mg Tablet 1 TAB PO DAILY for 30 Days, #30 TAB 0 Refills Lactobacillus Rhamnosus (Culturelle) 10 Billion Cell Capsule 1 CAP PO DAILY for 30 Days, #30 CAP 0 Refills Metformin HCl (Metformin HCl) 500 Mg Tablet 1 TAB PO BIDWM for 30 Days, #60 TAB Amlodipine Besylate (Amlodipine Besylate) 5 Mg Tablet 10 MG PO DAILY for 30 Days, #30 TAB Aspirin (Children's Aspirin) 81 Mg Tab.chew 81 MG PO DAILY@0830 for 30 Days, #30 TAB.CHEW Atorvastatin Calcium (Atorvastatin Calcium) 20 Mg Tablet 20 MG PO DAILY for 30 Days, #30 TAB Folic Acid* (Folic Acid*) Y Tab 1 MG PO DAILY for 30 Days, #30 TAB Losartan Potassium (Losartan Potassium) 50 Mg Tablet 50 MG PO DAILY for 30 Days, #30 TAB Multivitamin with Folic Acid (Thera Tablet) 400 Mcg Tablet 1 EACH PO Q24H for 30 Days, #30 TAB [place]-3 Fatty Acids/Fish Oil ([place] 3 1,000 mg Softgel) 300 Mg-1,000 Mg Capsule 1 CAP PO DAILY for 30 Days, #30 CAP [thiamine tablet] () 100 MG TABLET 100 MG PO DAILY for 30 Days, #30 Discontinued Medications: Home Med List (No Home Medications) Each Discharge Summary: History of present illness by the admitting physician Dr. Nguyen: This is a 67-year-old female with a history of hypertension, currently without a primary care provider, who presents with three weeks of intermittent lightheadedness, dizziness, and blurry vision. She reports that the symptoms have been gradually worsening but initially ignored them. Two weeks prior to presentation, she experienced a brief episode of left-sided upper and lower extremity weakness lasting approximately two minutes, which resulted in a fall. She denies loss of consciousness, seizure-like activity, or persistent neurologic deficits. She reports drinking one can of alcohol every 23 days and had a history of binge drinking about a month ago. She has a significant smoking history. She was previously prescribed lisinopril for hypertension but has not taken it for the past six months after obtaining it from [facility]. She has not been on any medications since then. On presentation, her blood pressure was markedly elevated at 202/120 mmHg. Laboratory evaluation revealed a glucose of 612 mg/dL and an A1c of 10.3%, suggesting uncontrolled diabetes mellitus. CT head was negative for acute pathology. Basic metabolic panel showed creatinine of 1.03 with a normal anion gap. Urinalysis was notable for glucosuria >1000 mg/dL, positive nitrites, 1020 WBCs, and negative ketones. CBC was within normal limits. She denies fever, dysuria, or flank pain. Course in the hospital: The patient was initially treated with the IV metoprolol for hypertensive urgency and was later started on p.o. amlodipine 10 mg. The patient's blood pressure was closely monitored. He she was also evaluated for presyncope and recent transient ischemic attack. Further evaluation revealed that the patient's blood sugar level was significantly elevated and in the 600s at the time of admission. A1c was also elevated at 10.3 %. The patient was educated regarding her newly diagnosed diabetes mellitus. She was initially treated with IV regular insulin and later the transition to subcutaneous insulin per protocol. MRI of the head was negative for any acute intracranial pathology. There was a suspicion for a maxillary mucosal versus small retention cyst. The patient was advised to follow up with the ENT/PCP as outpatient for the sinus pathology. Echocardiography was within normal limits. The patient's TSH who is within normal limits. The carotid ultrasound showed stenosis of less than 50%. She was started on aspirin and atorvastatin. During the hospitalization the patient was also found to have an underlying urinary tract infection. Urine cultures were sent for further evaluation and the patient was empirically treated with IV ceftriaxone. In view of the patient's significant alcohol use disorder, polysubstance use the substance abuse navigator were consulted and manager social media were consulted. The patient was also educated regarding the importance of staying abstinent from smoking, polysubstance abuse. She was treated with the IV thiamine and folic acid. The patient's condition improved significantly during the course of hospitalization. She was educated by the doctors, nursing and the dry kiln operator regarding her diabetes and the ways to manage it including lifestyle modification. The patient's condition is stable at the time of discharge. Advised at the time of discharge: Please establish a primary care physician with a [facility] using the resources provided to you within 1-2 weeks. Please maintain compliance with the antihyperglycemic and antihypertensive medications provided to you. Please follow the recommendations and use the glucose monitor. Consume low-carbohydrate diet. Maintain compliance with aspirin and atorvastatin. Follow up with an accounts payable analyst for an eye checkup within the next 1-2 weeks. In case of any worsening symptoms, stroke-like symptoms call 911 or return to the ER immediately. Maintain absolute abstinence from alcohol, smoking and recreational drugs. Complete a course of cefdinir for five more days for the treatment of the UTI. Examination at the time of discharge: General: Awake , alert, and oriented x4, resting comfortably in the bed, in no acute distress HEENT: Atraumatic, normocephalic, EOMI, anicteric sclera ; pink conjunctiva Neck: Trachea midline. Supple, full range of motion, no JVD Cardiac: Regular rhythm, regular rate with no murmurs all over the precordium. Respiratory: Equal breath sounds bilaterally, no tachypnea, no wheezing ,rub or rales, Chest wall is symmetric and without deformity. Gastrointestinal: Abdomen symmetric, non-distended, soft, non-tender, normal bowel sounds x4 quadrant, normoactive, no hepatosplenomegaly Neurological: Speech is clear, alert, and oriented x 4. No motor or sensory deficit, deep tendon reflexes normal, cerebellar intact. Cranial nerves II-XII intact. Skin: Warm and dry Laboratory Tests Test 12/10/24 18:19 12/10/24 19:23 12/10/24 20:27 12/10/24 21:32 Troponin I High Sensitivity 7 ng/L 10 ng/L Troponin I High Sens Percent Delta 0 % 42 % Troponin I Hi Sens Absolute Change 0 ng/L 3 ng/L Glucometer 386 mg/dl 273 mg/dl Test 12/10/24 23:04 12/11/24 06:01 12/11/24 07:39 12/11/24 12:26 Glucometer 199 mg/dl 230 mg/dl 251 mg/dl White Blood Count 6.9 X10'3 Red Blood Count 4.13 X10'6 Hemoglobin 12.6 g/dl Hematocrit 36.6 % Mean Corpuscular Volume 88.6 FL Mean Corpuscular Hemoglobin 30.4 PG Mean Corpuscular Hemoglobin Concent 34.3 g/dL Red Cell Distribution Width 12.8 % Platelet Count 185 X10'3 Mean Platelet Volume 10.2 FL Neutrophils (%) (Auto) 50.2 % Lymphocytes (%) (Auto) 38.0 % Monocytes (%) (Auto) 7.2 % Eosinophils (%) (Auto) 3.9 % Basophils (%) (Auto) 0.7 % Neutrophils # (Auto) 3.5 X10'3 Lymphocytes # (Auto) 2.6 X10'3 Monocytes # (Auto) 0.5 X10'3 Eosinophils # (Auto) 0.3 X10'3 Basophils # (Auto) 0.1 X10'3 CBC Comment Sodium Level 137 MMOL/L Potassium Level 3.4 MMOL/L Chloride Level 107 MMOL/L Carbon Dioxide Level 22.5 MMOL/L Anion Gap 8 Blood Urea Nitrogen 10 MG/DL Creatinine 0.66 MG/DL Estimated GFR/1.73 m2 > 90 ML/MIN BUN/Creatinine Ratio 15.2 Glucose Level 233 MG/DL Calcium Level 8.0 MG/DL Magnesium Level 1.6 MG/DL Total Bilirubin 0.5 MG/DL Aspartate Amino Transf (AST/SGOT) 23 U/L Alanine Aminotransferase (ALT/SGPT) 38 U/L Alkaline Phosphatase 114 IU/L Total Protein 6.0 G/DL Albumin 2.7 G/DL Globulin 3.3 G/DL Albumin/Globulin Ratio 0.8 Triglycerides Level 480 MG/DL Cholesterol Level 159 MG/DL LDL Cholesterol 55 MG/DL HDL Cholesterol 30 MG/DL Cholesterol/HDL Ratio 5.3 Lipase 46 U/L Chemistry Comments Test 12/11/24 17:40 12/11/24 18:48 12/11/24 20:40 12/12/24 05:27 Glucometer 211 mg/dl 234 mg/dl 175 mg/dl White Blood Count 6.4 X10'3 Red Blood Count 4.14 X10'6 Hemoglobin 12.5 g/dl Hematocrit 37.1 % Mean Corpuscular Volume 89.5 FL Mean Corpuscular Hemoglobin 30.1 PG Mean Corpuscular Hemoglobin Concent 33.6 g/dL Red Cell Distribution Width 12.9 % Platelet Count 204 X10'3 Mean Platelet Volume 10.5 FL Neutrophils (%) (Auto) 49.2 % Lymphocytes (%) (Auto) 38.3 % Monocytes (%) (Auto) 8.1 % Eosinophils (%) (Auto) 3.8 % Basophils (%) (Auto) 0.6 % Neutrophils # (Auto) 3.2 X10'3 Lymphocytes # (Auto) 2.5 X10'3 Monocytes # (Auto) 0.5 X10'3 Eosinophils # (Auto) 0.2 X10'3 Basophils # (Auto) 0.0 X10'3 CBC Comment Sodium Level 137 MMOL/L Potassium Level 3.8 MMOL/L Chloride Level 107 MMOL/L Carbon Dioxide Level 22.7 MMOL/L Anion Gap 7 Blood Urea Nitrogen 8 MG/DL Creatinine 0.68 MG/DL Estimated GFR/1.73 m2 88 ML/MIN BUN/Creatinine Ratio 11.8 Glucose Level 155 MG/DL Calcium Level 8.4 MG/DL Magnesium Level 1.7 MG/DL Total Bilirubin 0.4 MG/DL Aspartate Amino Transf (AST/SGOT) 36 U/L Alanine Aminotransferase (ALT/SGPT) 48 U/L Alkaline Phosphatase 108 IU/L Total Protein 6.2 G/DL Albumin 2.7 G/DL Globulin 3.5 G/DL Albumin/Globulin Ratio 0.8 Lipase 47 U/L Thyroid Stimulating Hormone (TSH) 2.75 ulU/ml Chemistry Comments Test 12/12/24 07:39 12/12/24 12:23 Glucometer 154 mg/dl 296 mg/dl *Problems/Diagnosis: (1) Hyperosmolar hyperglycemic state (HHS) (2) Diabetes mellitus (3) Hypertensive urgency (4) Noncompliance (5) BERTO (acute kidney injury) (6) UTI (urinary tract infection) (7) Hypokalemia (8) Alcohol use disorder (9) Polysubstance abuse (10) Pre-syncope (11) TIA (transient ischemic attack) Total Time Spent on D/C: > 30 Minutes Counseling Services Smoking & Tobacco Cessation: > 10 Minutes Date of Service: Dec 12, 2024 Billing Provider: PREETI PALOMINO MD, SURYA PRATIK, RES Dec 12, 2024 17:19
== END 2024-12-12 16:40 | disposition home or self-care (01) | DRG 199 ==
LOC: ER 16:03 → ED HOLD 17:43 → EDBEDREQ 20:59 → PCU 3S 21:55
PROVIDERS: ADMIT Family Medicine; ATTEND Family Medicine
PROC: 4A02XM4 Measurement of Cardiac Total Activity, External Approach (ICD-10-PCS; principal; 2024-12-11)
PROC: 3E033HZ Introduction of Radioactive Substance into Peripheral Vein, Percutaneous Approach (ICD-10-PCS; 2024-12-11)
DX: I16.1 Hypertensive emergency (principal); N17.0 Acute kidney failure with tubular necrosis; E11.00 Type 2 diabetes mellitus with hyperosmolarity without nonketotic hyperglycemic-hyperosmolar coma (NKHHC); F19.10 Other psychoactive substance abuse, uncomplicated; F10.90 Alcohol use, unspecified, uncomplicated; I10 Essential (primary) hypertension; E87.6 Hypokalemia; N39.0 Urinary tract infection, site not specified; Z79.899 Other long term (current) drug therapy; Z91.148 Patient's other noncompliance with medication regimen for other reason; Z59.00 Homelessness unspecified
CPT/HCPCS: 36415; 70450; 70551; 71045; 78452; 80048; 80053; 80061; 80076; 80305; 80320; 81001; 82948; 83036; 83690; 83735; 83880; 83930; 84443; 84484; 85025; 87077; 87081; 87088; 87186; 93005; 93017; 93306; 93880; 96374; 97161; 99285; A9500; G0378; J0696; J1644; J1815; J2785; J3411; J3490; J7030; J7040